=== PATIENT | male | born 1975 | race Caucasian/White ===

== ENCOUNTER 2024-11-20 18:16 | Emergency (ER) | payer BC, SELFPAY ==
--- NOTE | 2024-11-20 18:22 | ED_ITS ---
HPI - Skin/Abscess/Foreign Bdy General Chief complaint: Skin/Abscess/Foreign Body Stated complaint: poison aranza Time Seen by Provider: 11/20/24 18:18 Source: patient Mode of arrival: ambulatory Limitations: no limitations History of Present Illness HPI narrative: Aime is a 49-year-old male patient presenting to the clinic today with complaints of possible poison aranza. He reports he was cutting out some brush in his yd on Tuesday and got into some poison aranza. Has a red raised itchy rash on bilateral arms, bilateral legs, chest, and abdomen. Has not taken any medications for his symptoms. Denies any fevers, chills, body aches. Denies any other environmental changes. Related Data Home Medications ?Medication ?Instructions ?Recorded ?Confirmed ?Last Taken ?Type amlodipine .ROUTE 11/20/24 Unknown His tory metoprolol succinate PO 11/20/24 Unknown History Allergies Allergy/AdvReac Type Severity Reaction Status Date / Time diphenhydramine (From Allergy Unknown Unknown Verified 11/20/24 18:33 Benadryl) Review of Systems Review of Systems: Pertinent positives per HPI. Patient denies any fever, chills, headache, visual changes, dizziness, cough, runny nose, sore throat, shortness of breath, chest pain, palpitations, nausea, vomiting, diarrhea, constipation, abdominal pain, or any urinary issues. PMFSH Comments At the time of my signature, I reviewed and agree with the nursing past medical, surgical, social, and family history. There is no relevant family history pertinent to the patient complaint. Exam Narrative: General: Well-developed, well nourished, in no apparent distress Head: Normocephalic, atraumatic. Cardio: Regular rate and rhythm, s1 and s2 normal, no murmur appreciated. Resp: Clear to auscultation bilaterally, no rhonchi, rales, wheezing or rubs. Integumentary: [place], warm, and dry, intact without lesion, red raised blistery rash to the bilateral upper arms and forearms, bilateral lower extremities, left-sided chest wall and left abdomen wall. Course Course Emergency Course: Portions of this record may have been created with voice recognition software. Level of Care: Express Care Visit Vital Signs Vital signs: Vital Signs Temperature 36.7 C 11/20/24 18:32 Pulse Rate 102 H 11/20/24 18:32 Respiratory Rate 20 11/20/24 18:32 Blood Pressure 162/106 H 11/20/24 18:32 Pulse Oximetry 96 11/20/24 18:32 Oxygen Delivery Room Air 11/20/24 18:32 Temperature 36.7 C 11/20/24 18:32 Pulse Rate 102 H 11/20/24 18:32 Respiratory Rate 20 11/20/24 18:32 Blood Pressure 162/106 H 11/20/24 18:32 Pulse Oximetry 96 11/20/24 18:32 Oxygen Delivery Room Air 11/20/24 18:32 Vital signs reviewed MDM - Skin/Abscess/Foreign Bdy MDM Narrative Medical decision making narrative: At the time of visit patient is resting comfortably on the exam table. Patient appears to be nontoxic. Complaints of possible poison aranza. He reports he was cutting out some brush in his yd on Tuesday and got into some poison aranza. Has a red raised itchy rash on bilateral arms, bilateral legs, chest, and abdomen. Has not taken any medications for his symptoms. Denies any fevers, chills, body aches. Denies any other environmental changes. Patient has red, raised, blister rash to bilateral arms, bilateral legs, chest, and abdomen Medications: Dexamethasone 10 mg IM given in the clinic today. Plan: Patient has poison aranza dermatitis. Prescription for prednisone and triamcinolone cream was sent to the pharmacy. Supportive measures were discussed with the patient and they voiced understanding discharge instructions and agrees to treatment plan. Return precautions reviewed Differential Diagnosis Differential diagnosis: Likely abscess of skin or subcutaneous tissue, viral exanthem, dermatophytosis, urticaria, herpes zoster, allergic reaction to drug, cellulitis, eczema, insect bites, impetigo and contact dermatitis Discharge Plan Discharge Clinical Impression: Poison aranza dermatitis Patient Disposition: Home Condition: Stable Instructions: Antibiotic Form, Poison Aranza (ED) Additional Instructions: Dexamethasone 10 mg IM given in the clinic today Apply triamcinolone cream as directed Take prednisone as directed-start on 11/21/2024 Avoid hot showers May apply calamine lotion to rash Avoid scratching as this can cause a secondary infection. Follow up with your PCP in 3-5 days if symptoms persist or sooner if they worsen Go to the Emergency Room if symptoms worsen- fever, rash spreading with treatment, shortness of breath, tongue swelling, drooling, or chest pain Patient Language: [place] Prescriptions: New prednisone 10 mg tablet 10 mg PO DAILY Qty: 30 0RF Rx Instructions: 60mg po daily on day 1, 40mg po daily on days 2-4, 30mg po daily on days 5-6, 20mg po daily on days 7-8, 10mg po daily on days 9-10 triamcinolone acetonide 0.1 % cream 1 applic topical BID 7 Days Qty: 30 0RF No Action metoprolol succinate PO amlodipine .ROUTE Follow-up/Referrals: UNKNOWN,DOCTOR [Non-Staff] Time of Disposition: 18:35 Quality NIHSS Nursing Documentation ED NIHSS nursing documentation: reviewed/agree
[2024-11-20 18:32] VITALS: BP 162/106; PULSE 102; RESP 20; TEMP 36.7; O2SAT 96
[2024-11-20] MEDS: dexAMETHasone SOD PHOS INJ 10 MG/ML 1 ML VIAL IM (18:38)
== END 2024-11-20 19:01 | disposition home or self-care (01) ==
PROVIDERS: Emergency Provider Nurse Practitioner Family
DX: L23.7 Allergic contact dermatitis due to plants, except food (principal); I10 Essential (primary) hypertension
CPT/HCPCS: 96372; 99203; G0463; J1100